=== PATIENT | female | born 1975 | race Caucasian/White ===

== ENCOUNTER → 2021-10-06 12:56 | Outpatient (CLI) | payer OTHER, SELFPAY ==
[2021-10-06 13:45] LABS: Add Manual Diff / Slide Review NO; Basophils Absolute Auto 100 /uL (0-100); Basophils Percent Auto 1.3 % (0-2); Eosinophils Absolute Auto 200 /uL (0-450); Eosinophils Percent Auto 1.8 % (2-4); Hematocrit 41.1 % (36-46); Lymphocytes Absolute Auto 2900 /uL (1100-4500); Lymphocytes Percent Auto 26.4 % (25-40); Mean Corpuscular Hemoglobin 30.9 PG (26-34); Mean Corpuscular Volume 90.7 fL (80-100); Monocytes Absolute Auto 800 /uL (0-900); Monocytes Percent Auto 7.8 % (3-14); Neutrophils Absolute Auto 6800 /uL (1500-7000); Neutrophils Percent Auto 62.7 % (50-75); Platelet Count 368 X10^3/uL (150-400); Red Blood Cell Count 4.53 X10^6/uL (4.0-5.2); Red Cell Distribution Width 13.1 % (11.6-14.8); White Blood Cell Count 10.9 X10^3/uL (4.5-11.0)
[2021-10-06 14:18] LABS: Alanine Aminotransferase 24 IU/L (<35); Albumin 4.6 g/dL (3.5-5.0); Albumin Globulin Ratio 1.2 (1.0-2.8); Alkaline Phosphatase 72 U/L (38-126); Aspartate Aminotransferase 24 IU/L (14-36); BUN Creatinine Ratio 22.4 (6-22); Bilirubin Total 0.4 mg/dL (0.2-1.3); Blood Urea Nitrogen 15 mg/dL (7-17); Calcium 9.5 mg/dL (8.4-10.2); Carbon Dioxide 24 mmol/L (22-32); Chloride 104 mmol/L (98-107); Estimated Glomerular Filt Rate > 60.0 mL/min (>60); Globulin 3.8 g/dL (1.7-4.1); Glucose 89 mg/dL (70-100); HEMOLYSIS < 15 (0-50); Potassium 3.8 mmol/L (3.4-5.1); Sodium 137 mmol/L (137-145); Total Protein 8.4 g/dL (6.3-8.2)
[2021-10-06 14:34] LABS: Free T3, Triiodothyronine Free 4.05 pg/mL (2.77-5.27); T4 Total Thyroxine 8.89 ug/dL (5.5-11.0)
[2021-10-06 14:47] LABS: Thyroid Stimulating Hormone 1.07 uIU/mL (0.47-4.68)
[2021-10-06 14:49] LABS: Cortisol Random 5.03 ug/dL
[2021-10-06 17:00] LABS: Follicle Stimulating Hormone 9.12 mIU/mL; Progesterone, Total 7.41 ng/mL
[2021-10-06 17:16] LABS: Estradiol, Total 127.8 pg/mL
[2021-10-07 08:12] LABS: Thyroid Peroxidase Antibodies 10 IU/mL (0-34)
[2021-10-08 22:19] LABS: Anti Thyroglobulin Antibody <1.0 IU/mL (0.0-0.9)
[2021-10-12 09:06] LABS: Percent Free Testosterone 2.94 % (0.50-2.80); Testosterone Free 2.68 ng/dL (0.10-0.85); Testosterone Total 91.3 ng/dL (.)
== END ==
PROVIDERS: Referring Provider Family Medicine; Visit Provider Family Medicine
DX: N95.1 Menopausal and female climacteric states (principal); E03.9 Hypothyroidism, unspecified
CPT/HCPCS: 36415; 80053; 82533; 82627; 82670; 83001; 84144; 84402; 84403; 84436; 84443; 84481; 85025; 86376; 86800

== ENCOUNTER → 2023-12-04 13:48 | Outpatient (CLI) | payer OTHER, SELFPAY ==
[2023-12-04 14:25] LABS: Add Manual Diff / Slide Review NO; Basophils Absolute Auto 100 /uL (0-100); Basophils Percent Auto 1.3 % (0-2); Eosinophils Absolute Auto 100 /uL (0-450); Eosinophils Percent Auto 0.5 % (2-4); Hematocrit 40.5 % (36-46); Hemoglobin 13.6 g/dL (12.0-16.0); Lymphocytes Absolute Auto 2500 /uL (1100-4500); Lymphocytes Percent Auto 23.2 % (25-40); Mean Corpuscular HGB Conc 33.6 % (30-36); Mean Corpuscular Hemoglobin 30.9 PG (26-34); Mean Corpuscular Volume 91.9 fL (80-100); Monocytes Absolute Auto 900 /uL (0-900); Monocytes Percent Auto 8.2 % (3-14); Neutrophils Absolute Auto 7200 /uL (1500-7000); Neutrophils Percent Auto 66.8 % (50-75); Platelet Count 343 X10^3/uL (150-400); Red Blood Cell Count 4.41 X10^6/uL (4.0-5.2); Red Cell Distribution Width 13.8 % (11.6-14.8); White Blood Cell Count 10.8 X10^3/uL (4.5-11.0)
[2023-12-04 14:44] LABS: Hemoglobin A1C% w Est Avg Glu 5.1 % (4.0-6.0)
[2023-12-04 14:46] LABS: Alanine Aminotransferase 20 IU/L (<35); Albumin Globulin Ratio 1.2 (1.0-2.8); Alkaline Phosphatase 67 U/L (38-126); Amylase 68 U/L (30-110); Aspartate Aminotransferase 19 IU/L (14-36); BUN Creatinine Ratio 24.6 (6-22); Bilirubin Total 0.4 mg/dL (0.2-1.3); Blood Urea Nitrogen 14 mg/dL (7-17); C-Reactive Protein Quant < 0.5 mg/dL (<1.0); Calcium 8.7 mg/dL (8.4-10.2); Carbon Dioxide 27 mmol/L (22-32); Chloride 107 mmol/L (98-107); Estimated Glomerular Filt Rate > 60 mL/min (>60); Globulin 3.3 g/dL (1.7-4.1); Glucose 87 mg/dL (70-100); HEMOLYSIS < 15 (0-50); Potassium 4.1 mmol/L (3.4-5.1); Sodium 137 mmol/L (137-145); Total Protein 7.3 g/dL (6.3-8.2)
[2023-12-04 14:59] LABS: Free T3, Triiodothyronine Free 4.17 pg/mL (2.77-5.27)
[2023-12-04 15:11] LABS: Cortisol Random 6.72 ug/dL
[2023-12-04 15:12] LABS: Thyroid Stimulating Hormone 0.779 uIU/mL (0.47-4.68)
[2023-12-04 16:44] LABS: Follicle Stimulating Hormone 4.31 mIU/mL; Progesterone, Total 2.25 ng/mL
[2023-12-04 17:00] LABS: Estradiol, Total 419.5 pg/mL
[2023-12-11 11:16] LABS: Percent Free Testosterone 1.71 % (0.50-2.80); Testosterone Free 0.55 ng/dL (0.10-0.85); Testosterone Total 32.4 ng/dL (.)
== END ==
PROVIDERS: Referring Provider Family Medicine; Visit Provider Family Medicine
DX: N95.1 Menopausal and female climacteric states (principal); E03.9 Hypothyroidism, unspecified
CPT/HCPCS: 36415; 80053; 82150; 82533; 82670; 83001; 83036; 84144; 84402; 84403; 84436; 84443; 84481; 85025; 86140

== ENCOUNTER 2023-12-22 05:39 | Emergency (ER) | payer OTHER, SELFPAY ==
[2023-12-22 05:54] VITALS: BP 172/84; PULSE 71; RESP 16; TEMP 36.7; O2SAT 98
--- NOTE | 2023-12-22 06:03 | ED_ITS ---
HPI - General Adult <Delta Wallace MD - Last Filed: 12/22/23 06:49> General Chief complaint: Headache Stated complaint: headache going on for 5 weeks Time Seen by Provider: 12/22/23 06:01 History of Present Illness HPI narrative: Patient comes to the ED today because of a headache for 5 weeks. 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 She has no trauma associated with this. She has not had URI symptoms no congestion no sinus pain. No earache no fever. No cough or chest symptoms no abdominal symptoms no nausea or vomiting. She has chronic hypothyroidism. She is tried Tylenol and ibuprofen and prednisone for the headache with no effect. It has not positional in nature. She has not prone to headaches. She notes no visual disturbance or gait disturbance. She has a second-degree relative with multiple sclerosis. No neuroendocrine cancer history in the family. She says she has had some transient paresthesias in her lower extremities during these 5 weeks but no current symptoms. Related Data Home Medications Medication Instructions Recorded Confirmed omeprazole 20 mg capsule,delayed 20 mg PO DAILY 11/05/21 11/05/21 release progesterone PO 11/05/21 11/29/23 testosterone/estrogen topical 11/05/21 11/29/23 thyroid (pork) 120 mg tablet 120 mg PO DAILY 11/05/21 11/29/23 ([place] Thyroid) Previous Rx's Medication Instructions Recorded qbgqbkfnkc-fqfcyfgfzxryz-gprxkbzp 1 cap PO Q4-6H PRN pain #10 caps 12/22/23 50 mg-300 mg-40 mg capsule (Fioricet) ketorolac 10 mg tablet 10 mg PO TID PRN pain #10 tabs 12/22/23 Allergies Allergy/AdvReac Type Severity Reaction Status Date / Time Gadolinium-Containing Allergy Intermediate Sneezing Verified 11/29/23 13:03 Contrast Medi nitrofurantoin Allergy Chest Pain Verified 11/29/23 13:03 [From Macrodantin] sulfamethoxazole Allergy ITCHING Verified 11/29/23 13:03 [From Bactrim] trimethoprim [From Bactrim] Allergy ITCHING Verified 11/29/23 13:03 Patient History <Delta Wallace MD - Last Filed: 12/22/23 06:49> Medical History (Updated 12/22/23 @ 08:24 by Grace Botnick, DO) Irritable bowel syndrome (IBS) Intraoperative ureteral injury Bilateral hydronephrosis Frequent urinary tract infections History of hypothyroidism History of kidney stones High grade squamous intraepithelial cervical dysplasia (normal spontaneous vaginal delivery) Surgical History (Updated 11/29/23 @ 13:40 by Raghav Ruiz MD) H/O bilateral salpingo-oophorectomy History of ureter stent Hx of cystoscopy History of cholecystectomy History of appendectomy H/O vaginal hysterectomy Family History Sister Cancer Social History marital status: unmarried,single number of children: 2 occupational status: employed Previous occupational history: Registered Nurse Smoking Status: Never smoker alcohol intake: current caffeine: Yes Smoking Status: Never smoker Exam <Delta Wallace MD - Last Filed: 12/22/23 06:49> Narrative Exam Narrative: GENERAL: Alert, cooperative and in no distress. HEAD: Atraumatic. Normocephalic. EYES: Sclera are clear without icterus. Extraocular movements are full. ENT: No rhinorrhea. Oropharynx is moist. Mouth exam is benign. NECK: Supple. Full range of motion. CARDIOVASCULAR: Normal rate and rhythm without murmur gallop or rub. RESPIRATORY: Clear to auscultation. Breath sounds equal bilaterally. No wheezes, rales, or rhonchi. GASTROINTESTINAL: Abdomen soft, non-tender, nondistended. EXTREMITIES: No edema, full range of motion. No obvious trauma. BACK: Normal inspection, no CVA tenderness. NEURO: Nonfocal examination, normal speech, normal gait. Cranial nerves 2-12 are intact. Tongue movement is symmetric. Palate is midline with phonation. Three quadrants of visual sousa are tested which are normal. Extraocular movements are full. Coordination and rapid alternating movements are intact in upper extremities. Coordination is intact in lower extremities. Strength is intact in upper and lower extremities. Romberg is negative SKIN: No rash or erythema of visible areas PSYCH: Normally oriented. Normal range of affect. Appropriate behavior Initial Vital Signs Initial Vital Signs: Vital Signs Temperature 98.1 F 12/22/23 05:54 Pulse Rate 71 12/22/23 05:54 Respiratory Rate 16 12/22/23 05:54 Blood Pressure 172/84 H 12/22/23 05:54 Pulse Oximetry 98 12/22/23 05:54 Oxygen Delivery Method Room Air 12/22/23 05:54 <Grace Rowe DO - Last Filed: 12/22/23 08:31> Initial Vital Signs Initial Vital Signs: Vital Signs Temperature 98.1 F 12/22/23 05:54 Pulse Rate 71 12/22/23 05:54 Respiratory Rate 16 12/22/23 05:54 Blood Pressure 172/84 H 12/22/23 05:54 Pulse Oximetry 98 12/22/23 05:54 Oxygen Delivery Method Room Air 12/22/23 05:54 Course <Delta Wallace MD - Last Filed: 12/22/23 06:49> Orders Ordered: ED Orders 12/22/23 06:01 MR head/brain wo/w con Stat Famotidine (Famotidine 20 Mg/2 Ml Vial) 20 mg IV NOW [facility] Last Admin: 12/22/23 06:46 Dose: 20 mg Documented By: CONSTANCE Ondansetron HCl (Ondansetron 4 Mg/2 Ml Inj) 4 mg IV Q2HR PRN PRN Reason: Nausea And Vomiting Last Admin: 12/22/23 06:23 Dose: 4 mg Documented By: CONSTANCE Discontinued Medications Diphenhydramine HCl (Diphenhydramine 50 Mg/Ml Vial) 25 mg IV NOW ONE Stop: 12/22/23 06:14 Last Admin: 12/22/23 06:21 Dose: 25 mg Documented By: CONSTANCE Vital Signs Vital signs: Vital Signs - 8 hr 12/22/23 05:54 12/22/23 07:46 Temperature 98.1 F Pulse Rate 71 60 Respiratory Rate 16 14 Blood Pressure 172/84 H 141/87 H Pulse Oximetry 98 100 Oxygen Delivery Method Room Air Room Air <Grace Rowe DO - Last Filed: 12/22/23 08:31> Orders Ordered: ED Orders 12/22/23 06:01 MR head/brain wo/w con Stat Famotidine (Famotidine 20 Mg/2 Ml Vial) 20 mg IV NOW [facility] Last Admin: 12/22/23 06:46 Dose: 20 mg Documented By: CONSTANCE Ondansetron HCl (Ondansetron 4 Mg/2 Ml Inj) 4 mg IV Q2HR PRN PRN Reason: Nausea And Vomiting Last Admin: 12/22/23 06:23 Dose: 4 mg Documented By: CONSTANCE Discontinued Medications Diphenhydramine HCl (Diphenhydramine 50 Mg/Ml Vial) 25 mg IV NOW ONE Stop: 12/22/23 06:14 Last Admin: 12/22/23 06:21 Dose: 25 mg Documented By: CONSTANCE Vital Signs Vital signs: Vital Signs - 8 hr 12/22/23 05:54 12/22/23 07:46 Temperature 98.1 F Pulse Rate 71 60 Respiratory Rate 16 14 Blood Pressure 172/84 H 141/87 H Pulse Oximetry 98 100 Oxygen Delivery Method Room Air Room Air Medical Decision Making <Delta Wallace MD - Last Filed: 12/22/23 06:49> [facility] Narrative Medical decision making narrative: Five week chronic headache with some transient paresthesias. No trauma associated. No hard neurologic findings objectively air. Patient requests MR. This seems reasonable at this point given her lack of alternatives for other specific follow-up evaluation. A change of shift care will be transferred to Dr. Rowe <Grace Rowe DO - Last Filed: 12/22/23 08:31> Imaging Data MR brain: Radiologist's Impression: PROCEDURE: MR HEAD/BRAIN WO/W CON INDICATIONS: headache 5 weeks, paresthesias TECHNIQUE: Noncontrast axial T1 spin echo, axial T2 fast spin echo, sagittal and axial FLAIR, coronal T2 fast spin echo, axial gradient echo, axial diffusion and ADC through the brain. After the administration of contrast, axial and coronal and sagittal 3D VIBE or T1 spin echo with fat saturation through the brain. COMPARISON: None. FINDINGS: Image quality: Excellent. CSF Spaces: Basal cisterns are patent. No extra-axial fluid collections. Ventricles are normal in size and shape. Brain: No midline shift. No intracranial bleeds or masses. No abnormal intracranial enhancement. The brainstem appears normal. Diffusion-weighted images demonstrate no acute infarct. No chronic ischemic insults. Normal intravascular flow voids are present. Skull and face: Calvarial marrow is normal in signal. Orbits appear normal. Sinuses: Bilateral frontal, ethmoidal and maxillary sinus mucosal thickening. There is a mucous retention cyst in the right maxillary sinus. The mastoids appear clear. IMPRESSION: 1. No acute intracranial abnormalities. 2. Bilateral paranasal sinus disease. Dictated by: Myke Fischer M.D. on 12/22/2023 at 8:01 [facility] Narrative Medical decision making narrative: Five week chronic headache with some transient paresthesias. No trauma associated. No hard neurologic findings objectively air. Patient requests MR. This seems reasonable at this point given her lack of alternatives for other specific follow-up evaluation. A change of shift care will be transferred to Dr. Rowe Patient signed out to me by Dr. Ann is seen evaluated patient myself. Resting comfortably appears in no distress. She has had ongoing headaches for 5 weeks she describes it behind her eyes down her face and on the top her head. She is never previously had migraines. She is some numbness tingling in her legs. She does not feel like it sciatica. It has been fairly consistent. She has been taking ibuprofen and Tylenol without any relief. MRI has been reviewed without any sort of acute abnormality. She is denying absolutely any sort of back pain. I suspect some atypical migraine like headache or tension headache. She is requesting Toradol. We will try Toradol and Fioricet if helps her headaches. Recommend seeing headache specialist and neurologist. Discharge Plan Departure Patient Disposition: Home Clinical Impression: Headache Instructions: DI for Headache Activity Restrictions/Additional Instructions: *You have been diagnosed with headache *What to do: At this time I do recommend that you see a headache specialist and/or neurologist. Your MRI of your brain is negative. *Continue to take medications as directed Ketorolac 10 mg every 8 hours if needed for iuvy-xp-kbcvhelz pain do not combine with any other NSAIDs Fioricet 1-2 tablets every 4-6 hours if needed no more than 6 tablets in 1 day *Follow up with your primary care provider in 2-3 days or call [phone] *Return to ER if you should have increasing headache weakness or any new, worsening or concerning symptoms Prescriptions: New pvcculejfz-vnudjjgdduqlo-kinp [Fioricet] 50-300-40 mg capsule 1 cap PO Q4-6H PRN (Reason: pain) Qty: 10 0RF ketorolac 10 mg tablet 10 mg PO TID PRN (Reason: pain) Qty: 10 0RF No Action thyroid (pork) [[place] Thyroid] 120 mg tablet 120 mg PO DAILY progesterone 50 mg tablet PO testosterone/estrogen cream topical omeprazole 20 mg capsule,delayed release(DR/EC) 20 mg PO DAILY Referrals: Miscellaneous,Doctor, MD [Primary Care Provider] - Stand Alone Forms: Patient Portal/API
[2023-12-22] MEDS: diphenhydrAMINE 50 MG/ML VIAL 25 MG IV (06:21)
[2023-12-22] MEDS: ONDANSETRON 4 MG/2 ML INJ IV (06:23)
[2023-12-22] MEDS: FAMOTIDINE 20 MG/2 ML VIAL IV (06:46)
[2023-12-22 07:46] VITALS: BP 141/87; PULSE 60; RESP 14; O2SAT 100
[2023-12-22 08:58] VITALS: BP 142/78; PULSE 59; RESP 16; O2SAT 99
== END 2023-12-22 08:59 | disposition home or self-care (01) ==
PROVIDERS: Emergency Provider Emergency Medicine
DX: R51.9 Headache, unspecified (principal)
CPT/HCPCS: 70553; 96374; 96375; 99283; 99284; A9579; J1200; J2405

== ENCOUNTER → 2023-12-25 16:57 | Outpatient (CLI) | payer OTHER, SELFPAY ==
[2023-12-25 17:16] LABS: Add Manual Diff / Slide Review NO; Basophils Absolute Auto 100 /uL (0-100); Basophils Percent Auto 0.8 % (0-2); Eosinophils Absolute Auto 100 /uL (0-450); Eosinophils Percent Auto 1.1 % (2-4); Hematocrit 41.9 % (36-46); Lymphocytes Absolute Auto 3500 /uL (1100-4500); Lymphocytes Percent Auto 30.9 % (25-40); Mean Corpuscular HGB Conc 33.4 % (30-36); Mean Corpuscular Hemoglobin 30.9 PG (26-34); Mean Corpuscular Volume 92.5 fL (80-100); Monocytes Absolute Auto 700 /uL (0-900); Monocytes Percent Auto 6.4 % (3-14); Neutrophils Absolute Auto 6900 /uL (1500-7000); Neutrophils Percent Auto 60.8 % (50-75); Platelet Count 409 X10^3/uL (150-400); Red Blood Cell Count 4.53 X10^6/uL (4.0-5.2); Red Cell Distribution Width 13.7 % (11.6-14.8); White Blood Cell Count 11.3 X10^3/uL (4.5-11.0)
[2023-12-25 17:44] LABS: Alanine Aminotransferase 26 IU/L (<35); Albumin 4.1 g/dL (3.5-5.0); Albumin Globulin Ratio 1.2 (1.0-2.8); Alkaline Phosphatase 78 U/L (38-126); Aspartate Aminotransferase 19 IU/L (14-36); BUN Creatinine Ratio 22.6 (6-22); Bilirubin Total 0.4 mg/dL (0.2-1.3); Blood Urea Nitrogen 14 mg/dL (7-17); Calcium 9.3 mg/dL (8.4-10.2); Carbon Dioxide 28 mmol/L (22-32); Chloride 103 mmol/L (98-107); Estimated Glomerular Filt Rate > 60 mL/min (>60); Globulin 3.5 g/dL (1.7-4.1); Glucose 91 mg/dL (70-100); HEMOLYSIS < 15 (0-50); Potassium 4.2 mmol/L (3.4-5.1); Sodium 136 mmol/L (137-145); Total Protein 7.6 g/dL (6.3-8.2)
[2023-12-25 17:59] LABS: Follicle Stimulating Hormone 23.3 mIU/mL; Progesterone, Total 3.97 ng/mL
[2023-12-25 18:03] LABS: Free T3, Triiodothyronine Free 3.38 pg/mL (2.77-5.27); Free T4, Direct Thyroxine 0.81 ng/dL (0.78-2.19)
[2023-12-25 18:15] LABS: Cortisol Random 2.71 ug/dL; Estradiol, Total 96.7 pg/mL
[2023-12-25 18:16] LABS: Thyroid Stimulating Hormone 2.34 uIU/mL (0.47-4.68)
[2023-12-25 18:51] LABS: Folate > 20.0 ng/mL (2.76-20.0)
[2023-12-27 16:56] LABS: Vitamin D 25 Hydroxy (D3) 30.8 ng/mL (30.0-100.0)
[2024-01-04 20:00] LABS: Vitamin B12 958 pg/mL (239-931)
== END ==
PROVIDERS: PCP Family Medicine; Referring Provider Family Medicine; Visit Provider Family Medicine
DX: N95.1 Menopausal and female climacteric states (principal); E03.9 Hypothyroidism, unspecified
CPT/HCPCS: 36415; 80053; 82306; 82533; 82607; 82670; 82746; 83001; 84144; 84439; 84443; 84481; 85025

== ENCOUNTER → 2024-01-04 16:47 | Outpatient (CLI) | payer OTHER, SELFPAY ==
[2024-01-04 20:18] LABS: Ferritin 72 ng/mL (6-137)
[2024-01-04 20:28] LABS: Vitamin B12 > 1000 pg/mL (239-931)
[2024-01-04 20:43] LABS: Folate 16.4 ng/mL (2.76-20.0)
== END ==
PROVIDERS: PCP Family Medicine; Referring Provider Family Medicine; Visit Provider Family Medicine
DX: N95.1 Menopausal and female climacteric states (principal); E03.9 Hypothyroidism, unspecified
CPT/HCPCS: 36415; 82607; 82728; 82746

== ENCOUNTER → 2024-02-17 08:41 | Outpatient (CLI) | payer OTHER, SELFPAY ==
--- NOTE | 2024-02-17 08:43 | DI.RAD.S_ITS ---
PROCEDURE: XR KUB INDICATIONS: Flank pain history of stones TECHNIQUE: One view of the abdomen acquired. COMPARISON: None. FINDINGS: Surgical changes and devices: Cholecystectomy clips. Additional clips are noted overlying the right renal shadow. Bowel: Bowel gas pattern is normal. Soft tissues: No suspicious abdominal calcifications. Visualized solid organ contours appear normal in size. Bones: No suspicious bony lesions. IMPRESSION: Clips are present appearing to overlie the right renal shadow without definitive calcification. Dictated by: Lilia Paez M.D. on 02/18/2024 at 12:39 Approved by: Lilia Paez M.D. on 02/18/2024 at 12:40
--- NOTE | 2024-02-17 08:43 | DI.MG.S_ITS ---
BILATERAL DIGITAL SCREENING MAMMOGRAM 3D/2D WITH CAD WITH AUGMENTATION: 02/17/2024 CLINICAL: Routine screening. Family history of breast cancer. No prior exams were available for comparison. Both breasts are heterogeneously dense, which may obscure small masses (category c / 51-75% glandular tissue). Current study was also evaluated with a Computer Aided Detection (CAD) system. Bilateral prepectoral saline implants are present. Left saline implant has folds. No significant masses, calcifications, or other findings are seen in either breast. IMPRESSION: BENIGN There is no mammographic evidence of malignancy. A 1 year screening mammogram is recommended. Based on the Tyrer Cuzick model (a risk assessment model) the patient's lifetime risk is 19.4% and her 10 year risk is 4.3%. According to the ACR, ACS, and NCCN guidelines, an annual breast MRI exam along with mammogram is recommended if the patient's lifetime risk is 20% or greater. This exam was interpreted at Station ID: [id number]. NOTE: For mammograms, a report in lay terms will be sent to the patient. Approximately 15% of breast malignancies will not be visualized mammographically. In the management of a palpable breast mass, a negative mammogram must not discourage biopsy of a clinically suspicious lesion. Electronically Signed By: Vicky huang/:02/26/2024 17:00:57 letter sent: Normal Exam ACR BI-RADS Category 2: Benign Finding(s) 3342F
== END ==
PROVIDERS: PCP Family Medicine; Referring Provider Family Medicine; Visit Provider Family Medicine
DX: Z12.31 Encounter for screening mammogram for malignant neoplasm of breast (principal); Z80.3 Family history of malignant neoplasm of breast; R92.333 Mammographic heterogeneous density, bilateral breasts; Z09 Encounter for follow-up examination after completed treatment for conditions other than malignant neoplasm; Z87.442 Personal history of urinary calculi
CPT/HCPCS: 74018; 77063; 77067

== ENCOUNTER → 2024-03-18 09:01 | Outpatient (CLI) | payer OTHER, SELFPAY | PROVIDERS: PCP Family Medicine; Visit Provider Urology | DX: N39.0 Urinary tract infection, site not specified (principal) | CPT/HCPCS: 87077; 87086 ==

== ENCOUNTER → 2024-03-29 10:43 | Outpatient (CLI) | payer OTHER, SELFPAY ==
[2024-03-29 11:32] LABS: Appearance Urine UA CLEAR; Bilirubin Urine UA NEGATIVE (NEGATIVE); Color Urine UA YELLOW; Glucose Urine UA NEGATIVE (Negative); Ketones Urine UA NEGATIVE (NEGATIVE); Leukocyte Esterase Urine UA NEGATIVE (NEGATIVE); Nitrite Urine UA NEGATIVE (Negative); Occult Blood Urine UA NEGATIVE (Negative); Protein Urine UA NEGATIVE (Negative); Urobilinogen Urine UA 0.2 E.U./dL (0.2)
[2024-03-29 11:59] LABS: Bacteria Urine Occasional (0-1); Culture Indicated Urine Cult Not Indicated; RBC Urine None Seen (0-5/HPF); Squamous Epithelial Cell Urine 1-5 /HPF (0-5/HPF); Urine Volume 10mL (spun); WBC Urine None Seen (0-5/HPF)
== END ==
PROVIDERS: PCP Family Medicine; Referring Provider Urology; Visit Provider Urology
DX: N39.0 Urinary tract infection, site not specified (principal)
CPT/HCPCS: 81001

== ENCOUNTER → 2024-04-03 16:48 | Outpatient (CLI) | payer OTHER, SELFPAY ==
[2024-04-03 17:56] LABS: Add Manual Diff / Slide Review NO; Basophils Absolute Auto 0 /uL (0-100); Basophils Percent Auto 0.5 % (0-2); Eosinophils Absolute Auto 100 /uL (0-450); Eosinophils Percent Auto 1.1 % (2-4); Hemoglobin 13.5 g/dL (12.0-16.0); Lymphocytes Absolute Auto 3200 /uL (1100-4500); Lymphocytes Percent Auto 36.4 % (25-40); Mean Corpuscular HGB Conc 33.8 % (30-36); Mean Corpuscular Hemoglobin 31.2 PG (26-34); Mean Corpuscular Volume 92.5 fL (80-100); Monocytes Absolute Auto 600 /uL (0-900); Monocytes Percent Auto 7.4 % (3-14); Neutrophils Absolute Auto 4800 /uL (1500-7000); Neutrophils Percent Auto 54.6 % (50-75); Platelet Count 341 X10^3/uL (150-400); Red Blood Cell Count 4.32 X10^6/uL (4.0-5.2); Red Cell Distribution Width 12.8 % (11.6-14.8); White Blood Cell Count 8.8 X10^3/uL (4.5-11.0)
[2024-04-03 18:21] LABS: Alanine Aminotransferase 14 IU/L (<35); Albumin 4.2 g/dL (3.5-5.0); Albumin Globulin Ratio 1.4 (1.0-2.8); Alkaline Phosphatase 72 U/L (38-126); Amylase 57 U/L (30-110); Aspartate Aminotransferase 19 IU/L (14-36); BUN Creatinine Ratio 15.4 (6-22); Bilirubin Total 0.3 mg/dL (0.2-1.3); Blood Urea Nitrogen 10 mg/dL (7-17); Calcium 8.6 mg/dL (8.4-10.2); Carbon Dioxide 26 mmol/L (22-32); Chloride 107 mmol/L (98-107); Estimated Glomerular Filt Rate > 60 mL/min (>60); Globulin 3.1 g/dL (1.7-4.1); Glucose 90 mg/dL (70-100); HEMOLYSIS < 15 (0-50); Potassium 4.1 mmol/L (3.4-5.1); Sodium 138 mmol/L (137-145); Total Protein 7.3 g/dL (6.3-8.2)
[2024-04-03 18:48] LABS: Thyroid Stimulating Hormone 0.521 uIU/mL (0.47-4.68)
[2024-04-03 18:54] LABS: Estradiol, Total 53.3 pg/mL
[2024-04-03 18:57] LABS: Cortisol Random < 4.39 ug/dL
[2024-04-03 19:05] LABS: Appearance Urine UA CLEAR; Bilirubin Urine UA NEGATIVE (NEGATIVE); Color Urine UA YELLOW; Glucose Urine UA NEGATIVE (Negative); Ketones Urine UA NEGATIVE (NEGATIVE); Leukocyte Esterase Urine UA NEGATIVE (NEGATIVE); Nitrite Urine UA NEGATIVE (Negative); Occult Blood Urine UA NEGATIVE (Negative); Protein Urine UA NEGATIVE (Negative); Specific Gravity Urine UA 1.025 (1.000-1.035); Urobilinogen Urine UA 0.2 E.U./dL (0.2)
[2024-04-03 19:18] LABS: Bacteria Urine Many (>30); Culture Indicated Urine Specimen Cultured; RBC Urine None Seen (0-5/HPF); Squamous Epithelial Cell Urine 0-1 /HPF (0-5/HPF); Urine Volume 10mL (spun); WBC Urine 5-10/HPF (0-5/HPF)
[2024-04-03 19:24] LABS: Folate > 20.0 ng/mL (2.76-20.0); Vitamin B12 913 pg/mL (239-931)
[2024-04-09 09:12] LABS: Percent Free Testosterone 1.94 % (0.50-2.80); Testosterone Free 4.01 ng/dL (0.10-0.85); Testosterone Total 206.8 ng/dL (.)
[2024-04-13 11:10] LABS: % Free Progesterone 2.5 % (.); Progesterone, Serum 32 ng/dL (.)
== END ==
PROVIDERS: PCP Family Medicine; Referring Provider Family Medicine; Visit Provider Urology
DX: N95.1 Menopausal and female climacteric states (principal); E03.9 Hypothyroidism, unspecified; N39.0 Urinary tract infection, site not specified
CPT/HCPCS: 36415; 80053; 81001; 82150; 82533; 82607; 82670; 82746; 83001; 84144; 84402; 84403; 84443; 84999; 85025; 87077; 87086; 87186